=== PATIENT | male | born 1935 | race Caucasian/White ===

== ENCOUNTER 2017-12-31 11:35 | Outpatient (CLI) | payer MEDICARE, OTHER ==
[2017-12-31 12:22] LABS: BASOPHILS # (AUTO) 0.1 X10'3 (0-0.2); BASOPHILS % (AUTO) 1.1 % (0-1); EOSINOPHILS # (AUTO) 0.1 X10'3 (0-0.9); HEMATOCRIT 45.4 % (42.0-52.0); HEMOGLOBIN 15.4 g/dl (14.0-17.9); LYMPHOCYTES # (AUTO) 2.1 X10'3 (1.1-4.8); LYMPHOCYTES % (AUTO) 25.4 % (21-51); MEAN CORPUSCULAR HGB CONC 33.8 % (33.0-36.5); MEAN CORPUSCULAR VOLUME 91.7 FL (78-98); MEAN PLATELET VOLUME 7.7 FL (7.4-10.4); MONOCYTES # (AUTO) 0.6 X10'3 (0-0.9); MONOCYTES % (AUTO) 7.6 % (2-12); NEUTROPHILS # (AUTO) 5.4 X10'3 (1.8-7.7); NEUTROPHILS % (AUTO) 64.9 % (42-75); PLATELET COUNT 260 X10'3 (140-440); RED BLOOD COUNT 4.96 X10'6 (4.70-6.10); RED CELL DISTRIBUTION WIDTH 14.3 % (11.5-14.5); WHITE BLOOD COUNT 8.3 X10'3 (4.5-11.0)
[2017-12-31 12:26] LABS: CLARITY,URINE Clear (Clear); COLOR,URINE Dark Yellow (Yellow); GLUCOSE, URINE Negative (Neg); KETONES,URINE Trace mg/dl (Neg); LEUKOCYTE ESTERASE ,URINE Negative (Neg); NITRITES, URINE Negative (Neg); OCCULT BLOOD,URINE Negative (Neg); PROTEIN,URINE Trace mg/dl (Neg)
[2017-12-31 12:29] LABS: UA COLLECTION TYPE CLN CATCH MIDSTREAM
[2017-12-31 12:33] LABS: INR 1.1 INR; PROTHROMBIN TIME 11.1 SECONDS (9.0-12.0)
[2017-12-31 12:38] LABS: ALANINE AMINOTRANSFERASE 18 U/L (12-78); ALBUMIN 3.5 G/DL (3.4-5.0); ALBUMIN/GLOBULIN RATIO 0.8 (1.1-1.5); ALKALINE PHOSPHATASE 99 IU/L (46-116); ANION GAP 9 (8-16); ASPARTATE AMINO TRANSFERASE 16 U/L (10-37); BILIRUBIN,TOTAL 1.1 MG/DL (0.1-1.0); BLOOD UREA NITROGEN 19 MG/DL (7-18); BUN/CREATININE RATIO 15.6 (5.4-32.0); CALCIUM 9.5 MG/DL (8.5-10.1); CHLORIDE 102 MMOL/L (99-107); CREATININE 1.22 MG/DL (0.60-1.10); GLUCOSE 100 MG/DL (70-104); POTASSIUM 3.9 MMOL/L (3.5-5.1); SODIUM 138 MMOL/L (135-145); eGFR 57 ML/MIN
[2017-12-31 12:44] LABS: BACTERIA,URINE NONE SEEN /HPF (Neg); RBC,URINE NONE SEEN /HPF (0-2); SQUAMOUS EPITHELIAL CELL,UR NONE SEEN /LPF (FEW); WBC,URINE NONE SEEN /HPF (0-4)
== END 2017-12-31 23:59 | disposition home or self-care (01) ==
LOC: LAB 11:35
PROVIDERS: ATTEND Specialist
DX: Z01.818 Encounter for other preprocedural examination (principal); Z51.81 Encounter for therapeutic drug level monitoring; N39.0 Urinary tract infection, site not specified; Z87.891 Personal history of nicotine dependence
CPT/HCPCS: 36415; 80053; 81001; 85025; 85610; 87070

== ENCOUNTER 2018-01-11 05:12 | Inpatient (IN) | payer MEDICARE, OTHER ==
[2018-01-11] VITALS (20 sets, daily range): BP systolic 107–139; BP diastolic 54–95
[~2018-01-11] VITALS: Ht 177.8 cm; Wt 79.0 kg
[~2018-01-11 05:12] MED LIST: ASPI-529 PO; OMEP20CA10 PO; PRAV40TA3 PO; ringers solution, lacted 1,000 ML IV SCH
[2018-01-11] MEDS ORDERED: ceFAZolin inj. 2,000 MG in dextrose 5%-water 100 ML IV ONE (05:30)
[2018-01-11] MEDS ORDERED: oxyCODONE SR 10mg (sust. release) tab PO ONE (05:30)
[2018-01-11] MEDS ORDERED: famotidine 20mg tablet PO ONE (05:30)
[2018-01-11] MEDS ORDERED: gabapentin 300mg capsule PO ONE (05:30)
[2018-01-11] MEDS ORDERED: acetaminophen 325mg tablet PO ONE (05:30)
[2018-01-11] MEDS ORDERED: tranexamic acid inj. 1,000 MG in normal saline 100ml IV soln 90 ML IV ONE (05:30)
[2018-01-11] MEDS ORDERED: LIDOcaine 1% (10mg/ml) 2ml vial ONE (06:08)
[2018-01-11] MEDS ORDERED: ROPIVAcaine 0.5% (5mg/ml) 30ml vial ONE (06:42)
[2018-01-11] MEDS ORDERED: bacitracin inj 150,000 UNIT in sodium chloride irrig. sol 3,000 ML IR ONE (07:00)
[2018-01-11] MEDS ORDERED: BUPIVAcaine/PF 7.5mg/ml (0.75%) 10ml vial ONE (07:12)
[2018-01-11] MEDS ORDERED: tetracaine 1% (10mg/ml) pres. free inj. ONE (07:13)
[2018-01-11] MEDS ORDERED: fentaNYL/PF 50MCG/1 ML 2ML syringe ONE (07:14)
[2018-01-11] MEDS ORDERED: MIDAZolam 1mg/ml 10ml vial ONE (07:14)
[2018-01-11] MEDS ORDERED: morphine /PF 1mg/ml 10ml inj. ONE (07:15)
[2018-01-11] MEDS ORDERED: labetalol 20mg/4ml (5mg/ml) syringe IV PRN (07:40)
[2018-01-11] MEDS ORDERED: hydrALAZINE 20mg/ml inj. IV PRN (07:40)
[2018-01-11] MEDS ORDERED: ringers solution, lacted 1,000 ML IV SCH (07:40)
[2018-01-11] MEDS ORDERED: morphine 4 MG/ML inj SYRINge IV PRN ×2 (07:40)
[2018-01-11] MEDS ORDERED: fentaNYL/PF 50MCG/1 ML 2ML syringe IV PRN ×2 (07:40)
[2018-01-11] MEDS ORDERED: ondansetron/PF 4mg/2ml inj IV PRN ×3 (07:40→08:55)
[2018-01-11] MEDS ORDERED: diphenhydrAMINE 50 mg/ml inj IV PRN (07:45)
[2018-01-11] MEDS ORDERED: ceFAZolin 1000mg inj ONE (08:34)
[2018-01-11] MEDS ORDERED: acetaminophen 325mg tablet PO PRN (08:55)
[2018-01-11] MEDS ORDERED: diphenhydrAMINE 25mg capsule PO PRN ×2 (08:55)
[2018-01-11] MEDS ORDERED: magnesium hydroxide 30ml (MOM) UD suspension PO PRN (08:55)
[2018-01-11] MEDS ORDERED: HYDROmorphone inj. 0.5 MG/0.5 ML DISP.SYRIN IV PRN (08:55)
[2018-01-11] MEDS ORDERED: bisacodyl 10mg suppository rectal RC PRN (08:55)
[2018-01-11] MEDS: potassium cl 20mEq in 1/2 NS 1,000 ML IV SCH ×3 (13:04→19:34)
[2018-01-11] MEDS: ceFAZolin 1GM/D5W- ADD-VANTAGE 50 ML IV SCH ×2 (15:30→23:28)
[2018-01-11] MEDS: oxyCODONE/APAP 10/325mg tablet PO PRN (15:31)
[2018-01-11] MEDS: ascorbic acid 500mg tablet PO SCH (19:34)
[2018-01-11] MEDS: pravastatin 40mg tablet PO SCH (19:34)
[2018-01-11] MEDS: sennosides 8.6mg tablet PO SCH (21:00)
[2018-01-12] MEDS: oxyCODONE/APAP 10/325mg tablet PO PRN ×4 (02:03→19:49)
[2018-01-12 02:30] VITALS: BP 111/71
[2018-01-12 06:00] VITALS: BP 113/73
[2018-01-12 06:19] LABS: BASOPHILS % (AUTO) 0.2 % (0-1); EOSINOPHILS # (AUTO) 0.1 X10'3 (0-0.9); EOSINOPHILS % (AUTO) 0.9 % (0-6); HEMATOCRIT 38.8 % (42.0-52.0); HEMOGLOBIN 13.1 g/dl (14.0-17.9); LYMPHOCYTES # (AUTO) 1.6 X10'3 (1.1-4.8); LYMPHOCYTES % (AUTO) 15.3 % (21-51); MEAN CORPUSCULAR HEMOGLOBIN 31.1 PG (27.0-31.0); MEAN CORPUSCULAR HGB CONC 33.8 % (33.0-36.5); MEAN PLATELET VOLUME 7.7 FL (7.4-10.4); MONOCYTES % (AUTO) 9.4 % (2-12); NEUTROPHILS # (AUTO) 7.8 X10'3 (1.8-7.7); NEUTROPHILS % (AUTO) 74.2 % (42-75); PLATELET COUNT 201 X10'3 (140-440); RED BLOOD COUNT 4.21 X10'6 (4.70-6.10); WHITE BLOOD COUNT 10.6 X10'3 (4.5-11.0)
[2018-01-12 06:26] LABS: INR 2.2 INR
[2018-01-12 06:44] LABS: ANION GAP 8 (8-16); CHLORIDE 102 MMOL/L (99-107); POTASSIUM 4.4 MMOL/L (3.5-5.1); SODIUM 136 MMOL/L (135-145); TOTAL CARBON DIOXIDE 25.9 MMOL/L (24-32)
[2018-01-12] MEDS ORDERED: non-formulary drug (Omeprazole 1 CAP) PO SCH (08:00)
[2018-01-12] MEDS: pantoprazole 40mg Tablet.DR PO SCH (08:52)
[2018-01-12] MEDS: multivitamins, therapeutics tablet PO SCH (08:52)
[2018-01-12] MEDS: ascorbic acid 500mg tablet PO SCH ×2 (08:52→19:49)
[2018-01-12] MEDS: potassium cl 20mEq in 1/2 NS 1,000 ML IV SCH ×3 (08:55→19:50)
[2018-01-12 10:00] VITALS: BP 114/67
[2018-01-12 18:27] VITALS: BP 134/69
[2018-01-12] MEDS: sennosides 8.6mg tablet PO SCH (19:49)
[2018-01-12] MEDS: pravastatin 40mg tablet PO SCH (19:49)
[2018-01-12 22:00] VITALS: BP 107/68
[2018-01-13] MEDS: oxyCODONE/APAP 10/325mg tablet PO PRN ×4 (04:03→22:34)
[2018-01-13 06:00] VITALS: BP 130/75
[2018-01-13 06:30] LABS: INR 1.8 INR; PROTHROMBIN TIME 17.8 SECONDS (9.0-12.0)
[2018-01-13 06:47] LABS: BASOPHILS % (AUTO) 0.3 % (0-1); EOSINOPHILS # (AUTO) 0.2 X10'3 (0-0.9); HEMATOCRIT 37.1 % (42.0-52.0); HEMOGLOBIN 12.5 g/dl (14.0-17.9); LYMPHOCYTES # (AUTO) 1.7 X10'3 (1.1-4.8); MEAN CORPUSCULAR HEMOGLOBIN 31.3 PG (27.0-31.0); MEAN CORPUSCULAR HGB CONC 33.8 % (33.0-36.5); MEAN CORPUSCULAR VOLUME 92.6 FL (78-98); MEAN PLATELET VOLUME 7.9 FL (7.4-10.4); MONOCYTES # (AUTO) 0.9 X10'3 (0-0.9); MONOCYTES % (AUTO) 8.1 % (2-12); NEUTROPHILS # (AUTO) 8.6 X10'3 (1.8-7.7); NEUTROPHILS % (AUTO) 74.6 % (42-75); PLATELET COUNT 193 X10'3 (140-440); RED CELL DISTRIBUTION WIDTH 14.2 % (11.5-14.5); WHITE BLOOD COUNT 11.5 X10'3 (4.5-11.0)
[2018-01-13] MEDS: pantoprazole 40mg Tablet.DR PO SCH (08:51)
[2018-01-13] MEDS: ascorbic acid 500mg tablet PO SCH ×2 (08:51→20:38)
[2018-01-13] MEDS: multivitamins, therapeutics tablet PO SCH (08:51)
[2018-01-13] MEDS ORDERED: acetaminophen 325mg tablet PO PRN (08:55)
[2018-01-13 10:00] VITALS: BP 99/55
[2018-01-13] MEDS ORDERED: warfarin 2.5mg tablet PO ONE (10:00)
[2018-01-13 18:00] VITALS: BP 129/75
[2018-01-13] MEDS: pravastatin 40mg tablet PO SCH (20:38)
[2018-01-13] MEDS: sennosides 8.6mg tablet PO SCH (20:39)
[2018-01-13 22:00] VITALS: BP 124/72
[2018-01-14] MEDS: oxyCODONE/APAP 10/325mg tablet PO PRN ×3 (05:43→14:27)
[2018-01-14 06:00] VITALS: BP 117/70
[2018-01-14 06:30] LABS: BASOPHILS # (AUTO) 0.1 X10'3 (0-0.2); BASOPHILS % (AUTO) 0.6 % (0-1); EOSINOPHILS # (AUTO) 0.2 X10'3 (0-0.9); EOSINOPHILS % (AUTO) 2.5 % (0-6); HEMATOCRIT 36.2 % (42.0-52.0); HEMOGLOBIN 12.3 g/dl (14.0-17.9); LYMPHOCYTES # (AUTO) 1.9 X10'3 (1.1-4.8); LYMPHOCYTES % (AUTO) 19.2 % (21-51); MEAN CORPUSCULAR HEMOGLOBIN 31.2 PG (27.0-31.0); MEAN CORPUSCULAR VOLUME 91.7 FL (78-98); MEAN PLATELET VOLUME 7.8 FL (7.4-10.4); MONOCYTES # (AUTO) 0.8 X10'3 (0-0.9); MONOCYTES % (AUTO) 8.7 % (2-12); NEUTROPHILS # (AUTO) 6.7 X10'3 (1.8-7.7); PLATELET COUNT 201 X10'3 (140-440); RED BLOOD COUNT 3.95 X10'6 (4.70-6.10); WHITE BLOOD COUNT 9.6 X10'3 (4.5-11.0)
[2018-01-14 06:35] LABS: INR 1.9 INR; PROTHROMBIN TIME 19.4 SECONDS (9.0-12.0)
[2018-01-14] MEDS: ascorbic acid 500mg tablet PO SCH (07:28)
[2018-01-14] MEDS: multivitamins, therapeutics tablet PO SCH (07:28)
[2018-01-14] MEDS: pantoprazole 40mg Tablet.DR PO SCH (07:28)
[2018-01-14 10:00] VITALS: BP 116/64
[2018-01-14] MEDS ORDERED: warfarin 1mg tablet PO ONE (10:00)
== END 2018-01-14 15:00 | DRG 470 ==
LOC: PAS IN 05:12 → EDSTATUS 07:30 → ORTHO 4S 10:45
PROVIDERS: ADMIT Specialist; ATTEND Specialist
PROC: 0SRB02Z Replacement of Left Hip Joint with Metal on Polyethylene Synthetic Substitute, Open Approach (ICD-10-PCS; principal; 2018-01-11 07:10)
DX: M16.12 Unilateral primary osteoarthritis, left hip (principal); D62 Acute posthemorrhagic anemia; E78.5 Hyperlipidemia, unspecified; K21.9 Gastro-esophageal reflux disease without esophagitis; N18.3 Chronic kidney disease, stage 3 (moderate); G47.30 Sleep apnea, unspecified; Z96.641 Presence of right artificial hip joint; Z79.899 Other long term (current) drug therapy; Z79.82 Long term (current) use of aspirin; Z87.891 Personal history of nicotine dependence
CPT/HCPCS: 36415; 73502; 80051; 85025; 85610; 86885; 86900; 86901; 97110; 97116; 97162; 97530; A4565; A6253; A6449; A6455; A7000; C1758; C1776; J0690; J2250; J2274; J2795; J3010; J3490; J7030; J7060; J7120; Q0163

== ENCOUNTER 2019-07-22 08:43 | Emergency (ER) | payer MEDICARE, OTHER ==
[~2019-07-22] VITALS: Ht 180.3 cm; Wt 99.0 kg
[~2019-07-22 08:43] MED LIST changes: -OMEP20CA10 PO; +OMEP20CA15 PO; -ringers solution, lacted 1,000 ML IV SCH
[2019-07-22] MEDS ORDERED: normal saline 1000ML IV soln IVB ONE (09:05)
[2019-07-22 09:30] LABS: BASOPHILS % (AUTO) 0.6 % (0-1); EOSINOPHILS % (AUTO) 0.7 % (0-6); HEMATOCRIT 45.8 % (42.0-52.0); HEMOGLOBIN 15.4 g/dl (14.0-17.9); LYMPHOCYTES % (AUTO) 23.3 % (21-51); MEAN CORPUSCULAR HEMOGLOBIN 31.5 PG (27.0-31.0); MEAN CORPUSCULAR HGB CONC 33.7 g/dL (33.0-36.5); MEAN CORPUSCULAR VOLUME 93.3 FL (78-98); MEAN PLATELET VOLUME 8.1 FL (7.4-10.4); MONOCYTES # (AUTO) 0.5 X10'3 (0-0.9); MONOCYTES % (AUTO) 11.7 % (2-12); NEUTROPHILS # (AUTO) 2.9 X10'3 (1.8-7.7); NEUTROPHILS % (AUTO) 63.7 % (42-75); PLATELET COUNT 152 X10'3 (140-440); RED CELL DISTRIBUTION WIDTH 14.2 % (11.5-14.5); WHITE BLOOD COUNT 4.5 X10'3 (4.5-11.0)
[2019-07-22 09:42] LABS: ALANINE AMINOTRANSFERASE 28 U/L (12-78); ALBUMIN 3.3 G/DL (3.4-5.0); ALBUMIN/GLOBULIN RATIO 0.8 (1.1-1.5); ALKALINE PHOSPHATASE 70 IU/L (46-116); ANION GAP 7 (8-16); ASPARTATE AMINO TRANSFERASE 27 U/L (10-37); BILIRUBIN,TOTAL 0.6 MG/DL (0.1-1.0); BLOOD UREA NITROGEN 18 MG/DL (7-18); BUN/CREATININE RATIO 13.1 (5.4-32.0); CALCIUM 8.5 MG/DL (8.5-10.1); CHLORIDE 105 MMOL/L (99-107); CREATININE 1.37 MG/DL (0.60-1.10); GLUCOSE 92 MG/DL (70-104); POTASSIUM 4.3 MMOL/L (3.5-5.1); SODIUM 138 MMOL/L (135-145); TOTAL CARBON DIOXIDE 26.5 MMOL/L (24-32); TOTAL PROTEIN 7.3 G/DL (6.4-8.2); eGFR 50 ML/MIN
[2019-07-22] MEDS ORDERED: PRED20TA PO (10:36)
[2019-07-22] MEDS ORDERED: DOXY100C43 PO (10:36)
[2019-07-22 11:05] VITALS: BP 124/84
== END 2019-07-22 11:18 | disposition home or self-care (01) ==
LOC: ER 08:44
DX: J20.9 Acute bronchitis, unspecified (principal); K21.9 Gastro-esophageal reflux disease without esophagitis; Z90.49 Acquired absence of other specified parts of digestive tract; Z98.890 Other specified postprocedural states; Z79.82 Long term (current) use of aspirin; Z79.899 Other long term (current) drug therapy
CPT/HCPCS: 36415; 71045; 80053; 84484; 85025; 93005; 99284; J7040

== ENCOUNTER 2020-11-18 22:53 | Emergency (ER) | payer MEDICARE, OTHER ==
[~2020-11-18] VITALS: Ht 177.8 cm; Wt 80.9 kg
[2020-11-18 23:41] LABS: BASOPHILS % (AUTO) 0.3 % (0-1); EOSINOPHILS % (AUTO) 0.6 % (0-6); HEMATOCRIT 50.9 % (42.0-52.0); HEMOGLOBIN 17.3 g/dl (14.0-17.9); LYMPHOCYTES # (AUTO) 1.1 X10'3 (1.1-4.8); LYMPHOCYTES % (AUTO) 16.1 % (21-51); MEAN CORPUSCULAR HEMOGLOBIN 31.9 PG (27.0-31.0); MEAN CORPUSCULAR VOLUME 93.8 FL (78-98); MEAN PLATELET VOLUME 8.3 FL (7.4-10.4); MONOCYTES # (AUTO) 0.8 X10'3 (0-0.9); NEUTROPHILS # (AUTO) 5.1 X10'3 (1.8-7.7); PLATELET COUNT 258 X10'3 (140-440); RED BLOOD COUNT 5.43 X10'6 (4.70-6.10); RED CELL DISTRIBUTION WIDTH 14.3 % (11.5-14.5); WHITE BLOOD COUNT 7.1 X10'3 (4.5-11.0)
[2020-11-19 00:02] LABS: ALANINE AMINOTRANSFERASE 24 U/L (12-78); ALBUMIN 3.8 G/DL (3.4-5.0); ALBUMIN/GLOBULIN RATIO 0.8 (1.1-1.5); ALKALINE PHOSPHATASE 78 IU/L (46-116); ANION GAP 15 (8-16); ASPARTATE AMINO TRANSFERASE 19 U/L (10-37); BILIRUBIN,TOTAL 1.2 MG/DL (0.1-1.0); BLOOD UREA NITROGEN 36 MG/DL (7-18); BUN/CREATININE RATIO 22.2 (5.4-32.0); CALCIUM 9.7 MG/DL (8.5-10.1); CHLORIDE 107 MMOL/L (99-107); CREATININE 1.62 MG/DL (0.60-1.10); GLUCOSE 147 MG/DL (70-104); LIPASE 96 U/L (73-393); POTASSIUM 4.3 MMOL/L (3.5-5.1); SODIUM 139 MMOL/L (135-145); TOTAL CARBON DIOXIDE 17.2 MMOL/L (24-32); TOTAL PROTEIN 8.5 G/DL (6.4-8.2); eGFR 41 ML/MIN
[2020-11-19] MEDS ORDERED: normal saline 1000ml 1,000 ML IV ONE (00:20)
[2020-11-19] MEDS ORDERED: ondansetron/PF 4mg/2ml inj IV ONE (00:30)
--- NOTE | 2020-11-19 00:41 | NUR ---
PT WITH WATERY STOOL, SAMPLE COLLECTED AND SENT TO LAB, PT PLACED IN ENTERIC ISOLATION
[2020-11-19] MEDS ORDERED: ONDA4TAB12 PO (02:15)
[2020-11-19 02:44] VITALS: BP 104/68
[2020-11-19 10:43] LABS: C DIFF ANTIGEN NEGATIVE (NEGATIVE); C DIFF SPECIMEN=DIARRHEA? ACCEPTABLE; C DIFFICILE TOXINS A&B NEGATIVE (Neg)
== END 2020-11-19 03:57 | disposition home or self-care (01) ==
LOC: ER 22:53
DX: R19.7 Diarrhea, unspecified (principal); R11.2 Nausea with vomiting, unspecified; R53.1 Weakness; R42 Dizziness and giddiness; K21.9 Gastro-esophageal reflux disease without esophagitis; G47.30 Sleep apnea, unspecified; Z90.49 Acquired absence of other specified parts of digestive tract
CPT/HCPCS: 36415; 80053; 83690; 85025; 87324; 87449; 93005; 96361; 96374; 99284; J2405; J7030

== ENCOUNTER 2022-11-26 17:27 | Emergency (ER) | payer MEDICARE, OTHER ==
[~2022-11-26] VITALS: Ht 179.1 cm; Wt 78.6 kg
[~2022-11-26 17:27] MED LIST changes: +ONDA4TAB12 PO
[2022-11-26 18:16] VITALS: BP 124/84
[2022-11-26] MEDS ORDERED: LIDOcaine 1% W/epiNEPHrine 1:100,000 20ml vial SQ STA (18:31)
== END 2022-11-26 19:35 | disposition home or self-care (01) ==
LOC: ER 17:29
DX: S61.215A Laceration without foreign body of left ring finger without damage to nail, initial encounter (principal); K21.9 Gastro-esophageal reflux disease without esophagitis; Z90.49 Acquired absence of other specified parts of digestive tract; Z79.899 Other long term (current) drug therapy; X58.XXXA Exposure to other specified factors, initial encounter; Y93.89 Activity, other specified; Y92.89 Other specified places as the place of occurrence of the external cause; Y99.8 Other external cause status
CPT/HCPCS: 12001; 99284; A6222; A6258; A6449